=== PATIENT | female | born 1965 | race Caucasian/White ===

== ENCOUNTER → 2021-08-05 13:17 | Outpatient (CLI) | payer BC, SELFPAY ==
--- NOTE | ~2021-08-05 | MM_ITS ---
EXAMINATION: MM screening [facility] BI w zachariah HISTORY: Screening TECHNIQUE: Craniocaudal and mediolateral oblique 3-D tomosynthesis images were obtained and synthetic 2-D images were generated. CAD analysis was submitted and interpreted. COMPARISON: Comparison to multiple prior studies sequentially, with oldest reviewed study dated 03/2013. BREAST PARENCHYMAL COMPOSITION: There are scattered areas of fibroglandular density. FINDINGS: There is no evidence of suspicious mass, calcification, or architectural distortion to sugg est malignancy in either breast. There has been no suspicious interval change. IMPRESSION: 1. No mammographic evidence of malignancy. 2. Recommend routine screening mammography in one year. BI-RADS Category 1: Negative Reviewed, dictated and finalized at location A.
== END ==
PROVIDERS: Visit Provider Obstetrics & Gynecology Gynecology
DX: Z12.31 Encounter for screening mammogram for malignant neoplasm of breast (principal)
CPT/HCPCS: 77063; 77067

== ENCOUNTER 2024-08-02 12:37 | Outpatient (CLI) | payer BC, SELFPAY ==
--- NOTE | ~2024-08-02 | MM_ITS ---
EXAMINATION: MM screening [facility] BI w zachariah HISTORY: Screening mammogram TECHNIQUE: Craniocaudal and mediolateral oblique 3-D tomosynthesis images were obtained and synthetic 2-D images were generated. CAD analysis was submitted and interpreted. COMPARISON: 08/05/2021 BREAST PARENCHYMAL COMPOSITION:Not Dense. There are scattered areas of fibroglandular density. FINDINGS: No suspicious mass, calcification, or architectural distortion are identified in either gunjan ast to suggest malignancy. There has been no suspicious interval change. IMPRESSION: No mammographic evidence of malignancy. Recommend routine screening mammography in one year. BI-RADS Category 1: Negative Reviewed, dictated and finalized at location .
== END 2024-08-02 12:38 | disposition home or self-care (01) ==
DX: Z12.31 Encounter for screening mammogram for malignant neoplasm of breast (principal)
CPT/HCPCS: 77063; 77067

== ENCOUNTER 2025-06-18 12:50 | Outpatient (CLI) | payer BC, SELFPAY ==
--- NOTE | ~2025-06-18 | MR_ITS ---
EXAMINATION: MR wrist RT wo con DATE: 06/18/2025 13:23 INDICATION: Right wrist pain TECHNIQUE: Magnetic resonance imaging (MRI) of the right wrist was performed without intravenous contrast. Sequences performed include axial PD-weighted FSE and PD-weighted FS FSE, coronal PD-weighted FS FSE and T1-weighted SE, and sagittal PD-weighted FS FSE and PD-weighted FSE. COMPARISON: None FINDINGS: Intrinsic ligaments: The scapholunate and lunotriquetral ligaments are normal. Triangular fibrocartilage complex (TFCC): The triangular fibrocartilage including its foveal and styloid attachments as well as the dorsal and volar radioulnar ligaments are normal. The ulnar collateral ligament, ulnotriquetral ligament and meniscal homologue are normal. The extensor carpi ulnaris tendon sheath is normal. Extensor wrist: Mild tendinopathy and longitudinal split tear of the extensor carpi ulnaris tendon at level of the ulnar styloid process. Mild fusiform thickening of the abductor pollicis longus tendon consistent with mild tendinopathy without discrete tear. De Quervain's tenosynovitis with mild fluid signal surrounding the tendons and the first tarsal compartment at the level of the distal radius. The remaining extensor tendons of the wrist are normal. No tenosynovitis. Flexor wrist: The flexor tendons of the wrist are normal. No abnormality in the carpal tunnel with normal median nerve. Guyon's canal: Guyon's canal including the ulnar nerve and artery are normal. Bones/other: Normal marrow signal. No fracture, erosions, avascular necrosis or abnormal marrow replacing process. Joint spaces are normal with no focal cartilage defects appreciated. IMPRESSION: 1. De Quervain's tenosynovitis with mild tendinopathy without discrete tear of the abductor pollicis longus tendon. 2. Mild tendinopathy and partial split tearing of the flexor carpi ulnar tendon. Reviewed, dictated and finalized at location A. IMPRESSION: 1. De Quervain's tenosynovitis with mild tendinopathy without discrete tear of the abductor pollicis longus tendon. 2. Mild tendinopathy and partial split tearing of the flexor carpi ulnar tendon .
== END 2025-06-18 12:51 | disposition home or self-care (01) ==
LOC: GOSHIMG 12:51
PROVIDERS: PCP Orthopaedic Surgery; Visit Provider Orthopaedic Surgery
DX: M67.431 Ganglion, right wrist (principal); M65.4 Radial styloid tenosynovitis [de Quervain]
CPT/HCPCS: 73221

== ENCOUNTER 2025-10-02 12:30 | Outpatient (RCR) | payer BC, SELFPAY ==
--- NOTE | 2025-07-09 16:03 | OTOPEVAL1 ---
Assessment and note entered by Johnathan Grove, ADIS/Edna, CHT Evaluation Information Assessment Status Evaluation Diagnosis Radial styloid tenosynovitis, ganglion right wrist , pain in right wrist ICD-10 Condition Codes (OT) Pain in right wrist M25.531 Subjective Information Patient reports onset of hand/wrist pain last August. She reports pain and difficulties with being able to open jars, lift pots/pans, and pulling laundry out of the washer. She reports she has been compensating, using her left hand more, to take the pressure off the right. She has been wearing a thumb spica brace for about 2 weeks. Reported Pain Level Pain Score 0: Self Report Additional Pain Score Comments 5/10 pain with active ROM of the thumb and wrist Assessment OT Clinical Summary Patient referred to OT with dx of right wrist pain , de Quervain's tenosynovitis, and ganglion cyst of the right wrist. She presents with pain, stiffness, and weakness that limits functional use of her thumb and wrist for gripping, lifting, twisting, and carrying items during ADLs. Skilled OT indicated to maximize functional (R) UE use for ADLs via modalities, manual therapy, therapeutic exercise, HEP instruction and progression. Plan of Care Interventions Therapeutic Exercise,Manual Therapy,Neuro Re- education,Therapeutic Activities,Ultrasound, Paraffin OT Services Indicated Yes Treatment Frequency and 2x/week for 8 visits Duration These treatments will address the objective and functional deficits as defined above. The patient will be advanced safely and appropriately in order for the patient to progress towards his/her prior level of function. Additional exercises will be introduced and as well as a comprehensive home exercise program upon discharge, if needed, ?to ensure carryover of functional gains achieved in the clinic. This treatment plan has been reviewed and agreement upon by the patient.
--- NOTE | 2025-07-09 16:03 | OPREHPOC ---
Outpatient Therapy Plan of Care This is a Multidisciplinary Plan of Care that may contain components documented by all disciplines (PT, OT, and ST.) OT Problem 1 OT Problem #1 Knowledge Deficit OT Goal 1 Goal / Goal Update 1. Patient to be independent with instructed materials. Target Visit 8 OT Problem 2 OT Problem #2 Pain OT Goal 1 Goal / Goal Update 1. Patient to report reduced (R) wrist/thumb pain to 2/10 or less with ADLs. Target Visit 8 OT Problem 3 OT Problem #3 Impaired Flexibility OT Goal 1 Goal / Goal Update 1. Patient to be able to move the (R) wrist and thumb through full ROM without pain. Target Visit 8 OT Problem 4 OT Problem #4 Impaired Strength OT Goal 1 Goal / Goal Update 1. Patient to be able to progress functional strengthening of the (R) wrist to 2 lb. free weights x10 reps without pain. 2. Patient to be able to progress functional head porter baggage strengthening of the (R) hand to yellow putty x5 minutes without pain. Target Visit 8
--- NOTE | 2025-08-09 14:13 | OTOPPROG ---
Assessment and note entered by Johnathan Grove, ADIS/Edna, CHT Assessment Status Progress Diagnosis Radial styloid tenosynovitis, pain in right wrist ICD-10 Condition Codes (OT) Pain in right wrist M25.531 Subjective Information Patient reports improvements in her strength and ROM. She reports that there hasn't really been much changes in her pain levels. 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 Functionally she reports improvements with being able to write, open the fridge with the right hand, and lift more items out of the fridge. She continues to rely on compensatory motions during ADLs to avoid pain. She continues to be unable to use the right hand to open jars and pull laundry out of the washer. Patient received a cortisone injection to the 1st dorsal compartment on 08/07/25. She reports her wrist has been a little more sore since then. Assessment OT Clinical Summary Patient referred to OT with dx de Quervain's tenosynovitis of the right wrist. She has been participating in OT x4 weeks. She also received a cortisone injection this week. Patient is progressing with improved functional ROM and strength of the right wrist and hand. She continues to heavily utilize compensatory movements to avoid moving the wrist, which improves with cues and brining her awareness to the wrist. Patient completing stretching and strengthening for HEP with good compliance. 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 Continued skilled OT indicated to maximize functional (R) UE use for ADLs via modalities, manual therapy, therapeutic exercise, HEP instruction and progression. Plan of Care Interventions Therapeutic Exercise,Manual Therapy,Neuro Re- education,Therapeutic Activities,Ultrasound, Paraffin OT Services Indicated Yes Treatment Frequency and 2x/week for 8 visits Duration These treatments will address the objective and functional deficits as defined above. The patient will be advanced safely and appropriately in order for the patient to progress towards his/her prior level of function. Additional exercises will be introduced and as well as a comprehensive home exercise program upon discharge, if needed, ?to ensure carryover of functional gains achieved in the clinic. This treatment plan has been reviewed and agreement upon by the patient.
--- NOTE | 2025-08-09 14:14 | OPREHPOC ---
Outpatient Therapy Plan of Care This is a Multidisciplinary Plan of Care that may contain components documented by all disciplines (PT, OT, and ST.) OT Problem 1 OT Problem #1 Knowledge Deficit OT Goal 1 Goal / Goal Update 1. Patient to be independent with instructed materials. ---OT POC UPDATE 08/09/25--- 1. Met, continue as HEP is progressed Target Visit 16 OT Problem 2 OT Problem #2 Pain OT Goal 1 Goal / Goal Update 1. Patient to report reduced (R) wrist/thumb pain to 2/10 or less with ADLs. ---OT POC UPDATE 08/09/25--- 1. Not met, continue goal Target Visit 16 OT Problem 3 OT Problem #3 Impaired Flexibility OT Goal 1 Goal / Goal Update 1. Patient to be able to move the (R) wrist and thumb through full ROM without pain. ---OT POC UPDATE 08/09/25--- 1. Progressing, not met Target Visit 16 OT Problem 4 OT Problem #4 Impaired Strength OT Goal 1 Goal / Goal Update 1. Patient to be able to progress functional strengthening of the (R) wrist to 2 lb. free weights x10 reps without pain. 2. Patient to be able to progress functional delicate fabrics presser strengthening of the (R) hand to yellow putty x5 minutes without pain. ---OT POC UPDATE 08/09/25--- 1. Not met, continue goal 2. Not met, continue goal Target Visit 16
--- NOTE | 2025-10-02 13:14 | OTOPDC ---
Assessment and note entered by Johnathan Grove, ADIS/Edna, CHT Assessment Status Discharge Diagnosis Radial styloid tenosynovitis, pain in right wrist ICD-10 Condition Codes (OT) Pain in right wrist M25.531 Subjective Information Patient returns today after 4 weeks off of therapy. She reports she continues to have no pain and is doing well. She notes that the radial wrist continues to have a large lump, however. She no longer is wearing the thumb spica, instead she utilizes k-tape as needed. She reports she is been functioning pain free with ADLs. Notes she washed several loads of bed sheets, making beds, and pulled items out of the washer without pain. She has been using the hand/wrist without having to compensate. (R) wrist/hand ROM is WNL. She is able to move the right wrist without pain. 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 Reported Pain Level Pain Score 0: Self Report Assessment OT Clinical Summary Patient referred to OT with dx de Quervain's tenosynovitis of the right wrist. She has progressed to normal ROM and strength. She is no longer experiencing pain with ADLs. She does however continue to have swelling that is hard to the touch at the 1st dorsal compartment. At this time she is independent with all materials. D/C OT with goals met. Plan of Care OT Services Indicated No
== END 2025-10-02 14:49 | disposition home or self-care (01) ==
LOC: ANHGOSHOT 12:30
PROVIDERS: Visit Provider Nurse Practitioner Family
DX: M65.4 Radial styloid tenosynovitis [de Quervain] (principal); M67.431 Ganglion, right wrist; M25.531 Pain in right wrist
CPT/HCPCS: 97018; 97035; 97110; 97140; 97165